=== PATIENT | male | born 2000 | race African-American/Black ===

== ENCOUNTER 2024-06-29 08:43 | Emergency (ER) | payer OTHER ==
[~2024-06-29] VITALS: Ht 175.3 cm; Wt 71.0 kg
[2024-06-29] MEDS ORDERED: CELE1CAP99 PO (08:52)
[2024-06-29] MEDS ORDERED: TIZA4CAP PO (08:52)
[2024-06-29] MEDS: LIDOCAINE 1% MDV 20ML VIAL IM ONE (10:34)
[2024-06-29] MEDS ORDERED: CEPH500C PO (10:45)
[2024-06-29 10:56] VITALS: BP 127/76; TEMP 97.5; O2SAT 99
== END 2024-06-29 10:59 | disposition home or self-care (01) ==
LOC: M ED 08:43
DX: L02.214 Cutaneous abscess of groin (principal); Z88.6 Allergy status to analgesic agent; Z79.2 Long term (current) use of antibiotics; Z79.899 Other long term (current) drug therapy